=== PATIENT | female | born 1950 | race Caucasian/White ===

== ENCOUNTER 2020-06-24 12:34 | Outpatient (RCR) | payer MEDICARE, SELFPAY ==
[2014-05-05 13:06] VITALS: BMI 28.0
[2020-06-24] MEDS: COVID-19 VACC, MRNA(PFIZER)/PF 30 MCG/0.3 ML SYRINGE IM (16:50)
[2020-07-15] MEDS: COVID-19 VACC, MRNA(PFIZER)/PF 30 MCG/0.3 ML SYRINGE IM (16:40)
== END 2020-09-28 23:59 ==
LOC: IMMUN 12:34
PROVIDERS: PCP Internal Medicine; Visit Provider Family Medicine
DX: Z23 Encounter for immunization (principal)
CPT/HCPCS: 0001A; 0002A; 91300

== ENCOUNTER 2021-05-07 11:13 | Emergency (ER) | payer MEDICARE, SELFPAY ==
[2021-05-07 11:14] VITALS: BP 150/66; PULSE 93; RESP 14; TEMP 36.2; O2SAT 96; BMI 32.5
--- NOTE | 2021-05-07 11:27 | EX.ED.DYSGE1 ---
HPI History of Present Illness Chief Complaint: Lower Extremity Injury Informant: patient Narrative Narrative: 70-year-old female states that she has had a discomfort and fullness behind the left knee for the past several weeks. Its been bothersome but not troublesome. She states that today she was stepping down off of a stepstool when she felt a pop in the back of the knee. She states as long as she is not bearing weight on it feels okay. PFSH PFS Medical History (Updated 05/07/21 @ 11:[address] Justice Wilder DO) Hypercholesterolemia Home Medications simvastatin 20 mg PO QHS 05/01/14 [History Last Taken Unknown] Allergy/AdvReac Type Severity Reaction Status Date / Time Iodinated Contrast Media [CT] Allergy Hives Verified 05/07/21 11:16 Penicillins Allergy Hives Verified 05/07/21 11:16 Social History (Updated 05/07/21 @ 11:[address] Justice Wilder DO) Smoking Status: Former smoker substance use type: does not use ROS ROS ED Constitutional Constitutional ED: Denies chills, fever(s) or weight loss Eyes Eyes: Denies change in vision or diplopia ENT ENT ED: Denies ear pain, rhinorrhea or sore throat Cardiovascular Cardiovascular: Denies chest pain, orthopnea, palpitations or racing heartbeat Respiratory/Chest Respiratory/Chest: Denies cough, dyspnea or orthopnea Gastrointestinal Gastrointestinal: Denies abdominal pain, diarrhea, nausea or vomiting Genitourinary Genitourinary ED: Denies dysuria, hematuria or urinary frequency Musculoskeletal Musculoskeletal: Reports other Details: Left posterior knee pain ; Denies arthralgias or myalgias Integumentary Denies abscess or rash Neurologic Neurologic: Denies headache(s) or weakness Psychiatric Psychiatric: Denies anxiety, depression, suicidal ideation or suicidal thoughts Endocrine Endocrinology: Denies polydipsia, polyphagia or polyuria Allergic/Immunologic Allergic/Immunologic ED: Denies mouth swelling, tongue swelling or urticaria EXAM Physical Exam Const Vital Signs: 05/07/21 11:14 Temperature 97.1 F L Temperature Source Temporal Pulse Rate 93 Respiratory Rate 14 Blood Pressure 150/66 H Blood Pressure Mean 94 Pulse Ox 96 Oxygen Delivery Method Room Air Positive well nourished and well developed General Appearance ED: well developed HEENT Reports normocephalic, head/scalp atraumatic, TM's clear and moist mucous membranes Negative for trauma Tympanic Membrane ED: Yes TM's clear Eyes PERRL and EOMs intact bilaterally Neck no lymphadenopathy, supple and no JVD Resp normal respiratory effort and clear to auscultation bilaterally Cardio regular rate, regular rhythm and no murmurs GI normal to inspection, nondistended, normoactive bowel sounds and non-tender Palpation: soft Back/Spine no CVA tenderness and normal ROM Extremity Extremity Narrative: Patient is tenderness to palpation in the popliteal fossa. There is no swelling of the leg noted. Neurovascular intact. Ligaments appear stable. Negative grind test. General Extremety ED: Negative for edema General Extremity: Negative for edema Neuro oriented x3 and CN's II-XII intact bilaterally Sensorium / Orientation: alert Motor Exam: strength 5/5 throughout Psych mental status grossly normal Mood & Affect: Negative for depressed or tearful Skin no rashes or lesions noted and no wounds MDM MDM MDM Narrative Medical decision making narrative: My interpretation of the plain films of the left knee is no acute process. Patient will have an Jamel wrap applied. This could have been a Pena's cyst that ruptured. I do not believe this to be DVT. This could also be a sprain strain. I think conservative treatment is indicated at this time return if worsening or concerns Discharge Plan Triage Chief Complaint: Lower Extremity Injury ED Provider: Justice Wilder Dx/Rx/DC Orders Clinical Impression: Acute pain of left knee Instructions: ED Pena's Cyst Prescriptions: No Action simvastatin 20 MG tablet 20 mg PO QHS RF: 0 Primary Care Provider: Brittni Cody Referrals: Brittni Cody MD [Primary Care Provider] - As Needed Raji Anthony DO [STAFF PHYSICIAN] - 10-14 Days if not better Disposition Disposition: Home, Self Care
--- NOTE | 2021-05-07 11:39 | RAD_ITS ---
STUDY: X-RAY - LEFT KNEE REASON FOR EXAM: Female, 70 years old. PAIN IN THE BACK HER LEFT KNEE. INJURED 3 WEEKS AND FELT A POP, REINJURED TODAY LEG WANTED TO GIVE OUT ON HER AND SHE HAS A VERY HARD TIME BEARING WT ON HER LEFT KNEE. TECHNIQUE: 4 view(s) of the knee. COMPARISON: None. FINDINGS: Normal visualized distal femur. Normal visualized proximal tibia and fibula. Normal proximal tibiofibular articulation. Normal medial femorotibial compartment. Normal lateral femorotibial compartment. Normal patellofemoral articulation. There is a soft tissue prominence in the suprapatellar region suggesting a small volume joint effusion. The soft tissue structures are unremarkable. RAD/Knee 4 or More Views IMPRESSION: Small joint effusion. No demonstrated fracture. Electronically Signed: Darrel Vora MD ([place]) at 11:51 EST , Service support ,
== END 2021-05-07 12:30 | disposition home or self-care (01) ==
LOC: ED 11:48
PROVIDERS: Emergency Provider Emergency Medicine; PCP Internal Medicine; Visit Provider Emergency Medicine
DX: M25.562 Pain in left knee (principal); Z87.891 Personal history of nicotine dependence
CPT/HCPCS: 73564; 99282